=== PATIENT | female | born 1970 | race Caucasian/White ===

== ENCOUNTER 2017-08-24 06:05 | Day surgery (SDC) | payer OTHER ==
[~2017-08-24] VITALS: Ht 157.5 cm; Wt 70.8 kg
[2017-08-24] MEDS ORDERED: CEFAZOLIN SOD 1 GM/ ISO 50 ML PREMIX IV ONE (07:00)
[2017-08-24] MEDS ORDERED: CEFAZOLIN 1 GM IVPB PREMIX 50 ML IV ONE (07:05)
[2017-08-24] MEDS ORDERED: MIDAZOLAM HCL 5 MG/ML VIAL (VERSED) IV ONE (09:10)
[2017-08-24] MEDS ORDERED: MORPHINE SULFATE 10MG/10ML PF AMP EP ONE (09:10)
[2017-08-24] MEDS ORDERED: SEVOFLURANE 15 MIN GAS INH ONE (09:10)
[2017-08-24] MEDS ORDERED: PROPOFOL 200MG/ 20ML VIAL (DIPRIVAN) IV ONE (09:10)
[2017-08-24] MEDS ORDERED: fentaNYL CITRATE/PF 100 MCG/2 ML AMP IVP ONE (09:10)
[2017-08-24] MEDS ORDERED: HYDROcodone/ACETAMIN 5-325 MG TAB (NORCO/ VICODIN) PO PRN (09:15)
[2017-08-24] MEDS ORDERED: ONDANSETRON HCL 4 MG/2 ML VIAL IVP PRN ×2 (09:15)
[2017-08-24] MEDS ORDERED: fentaNYL CITRATE/PF 100 MCG/2 ML AMP IVP PRN ×2 (09:15)
[2017-08-24] MEDS ORDERED: OXYCODONE/ACETAMINOPHEN 5-325 TABLET PO PRN (09:15)
[2017-08-24 10:20] VITALS: BP_SYST 116
[2017-08-24] MEDS ORDERED: ONDANSETRON HCL 4 MG/2 ML VIAL ONE (10:44)
== END 2017-08-24 11:25 | disposition home or self-care (01) ==
LOC: SDS 06:05 → SMU 06:05 → SDS 11:25
PROVIDERS: ATTEND Specialist
DX: D25.9 Leiomyoma of uterus, unspecified (principal); Z79.899 Other long term (current) drug therapy; Z98.890 Other specified postprocedural states; D64.9 Anemia, unspecified; I73.9 Peripheral vascular disease, unspecified
CPT/HCPCS: 58558; 88305; J0690; J2274; J2405; J2704; J3010; J7120; J2250